=== PATIENT | female | born 1930 | race Caucasian/White ===

== ENCOUNTER 2016-07-22 10:33 | Inpatient (IN) | payer MEDICARE, BC ==
[2016-07-22 11:23] LABS: BASOPHILS % (AUTO) 1 % (0-3); EOSINOPHILS % (AUTO) 0 % (0-9); HEMATOCRIT 38 % (35-47); MEAN CORPUSCULAR HGB CONC 33.2 gm/dl (32.0-36.0); MEAN CORPUSCULAR VOLUME 82 fL (81-99); NEUTROPHILS % (AUTO) 96.1 % (37-80)
[2016-07-22 11:36] LABS: ALBUMIN 2.4 gm/dl (3.4-5.0); CALCIUM 8.5 mg/dl (8.5-10.1); POTASSIUM 4.5 mMol/L (3.5-5.1)
[2016-07-22] MEDS ORDERED: CEFTRIAXONE 1 GM (PREMIX) 1 GM/50 ML SOL IV ONE ×2 (11:47→11:51)
[2016-07-22] MEDS ORDERED: BACITRACIN 500 U/GM OIN TOP ONE (11:58)
[2016-07-22] MEDS ORDERED: SODIUM CHLORIDE 0.9% 1000 ML SOL IV SCH (12:00)
[2016-07-22] MEDS ORDERED: VANCOMYCIN HCL 500 MG PDS 1,000 MG in SODIUM CHLORIDE 0.9% 250 ML 250 ML IV SCH (13:30)
[2016-07-22] MEDS ORDERED: PIPERACILLIN/TAZOBACT 3.375 GM 3 GM in SODIUM CHLORIDE 0.9% 100 ML 100 ML IV SCH (13:30)
[2016-07-22] MEDS: ALBUTEROL/IPRATROPIUM 1 VIAL SOL INH SCH ×2 (14:30→19:40)
[2016-07-22] MEDS ORDERED: PHARMACOKINETICS 1 MISC PRN (14:43)
[2016-07-22] MEDS ORDERED: SODIUM CHLORIDE 0.9% 250 ML 250 ML IV ONE (14:52)
[2016-07-22] MEDS ORDERED: VANCOMYCIN HYDROCHLORIDE 500 MG PDS IV ONE (14:52)
[2016-07-22] MEDS: VANCOMYCIN HCL 500 MG PDS 1,000 MG in SODIUM CHLORIDE 0.9% 250 ML 250 ML IV SCH (15:00)
[2016-07-22] MEDS ORDERED: PIPERACILLIN/TAZOBACT 3.375 GM PDS IV ONE ×2 (16:06→22:43)
[2016-07-22] MEDS ORDERED: SODIUM CHLORIDE 0.9% 100 ML 100 ML IV ONE ×2 (16:06→22:43)
[2016-07-22] MEDS: PIPERACILLIN/TAZOBACT 3.375 GM 2.25 GM in SODIUM CHLORIDE 0.9% 100 ML 100 ML IV SCH ×2 (16:31→22:54)
[2016-07-22] MEDS ORDERED: WARFARIN SODIUM 3 MG TAB PO SCH (18:00)
[2016-07-22] MEDS: POTASSIUM CHLORIDE 10 MEQ TER PO SCH (21:29)
[2016-07-22] MEDS: SODIUM CHLORIDE 0.9% 1000ML 1,000 ML IV SCH (22:44)
[2016-07-23] MEDS: ALBUTEROL/IPRATROPIUM 1 VIAL SOL INH SCH ×4 (03:48→19:57)
[2016-07-23] MEDS ORDERED: PIPERACILLIN/TAZOBACT 3.375 GM PDS IV ONE ×4 (04:31→22:53)
[2016-07-23] MEDS ORDERED: SODIUM CHLORIDE 0.9% 100 ML 100 ML IV ONE ×4 (04:31→22:53)
[2016-07-23] MEDS: SODIUM CHLORIDE 0.9% 1000ML 1,000 ML IV SCH ×4 (04:43→20:46)
[2016-07-23] MEDS: PIPERACILLIN/TAZOBACT 3.375 GM 2.25 GM in SODIUM CHLORIDE 0.9% 100 ML 100 ML IV SCH ×4 (04:43→23:29)
[2016-07-23 07:25] LABS: BASOPHILS % (AUTO) 0 % (0-3); EOSINOPHILS % (AUTO) 0 % (0-9); HEMATOCRIT 38 % (35-47); MEAN CORPUSCULAR HGB CONC 31.5 gm/dl (32.0-36.0); MEAN CORPUSCULAR VOLUME 84 fL (81-99); MONOCYTES % (AUTO) 4.3 % (0-12); NEUTROPHILS % (AUTO) 94.1 % (37-80)
[2016-07-23 07:36] LABS: ALBUMIN 2.2 gm/dl (3.4-5.0); CALCIUM 8.2 mg/dl (8.5-10.1); POTASSIUM 4.2 mMol/L (3.5-5.1)
[2016-07-23] MEDS ORDERED: WARFARIN SODIUM 3 MG TAB PO SCH (09:00)
[2016-07-23] MEDS: POTASSIUM CHLORIDE 10 MEQ TER PO SCH ×2 (09:57→20:06)
[2016-07-23] MEDS: PREDNISONE 5 MG TAB PO SCH (09:58)
[2016-07-23] MEDS: ASCORBIC ACID/COPPER/VITAMIN SGL PO SCH (09:58)
[2016-07-23] MEDS: FUROSEMIDE 20 MG TAB PO SCH (09:58)
[2016-07-23] MEDS: PANTOPRAZOLE SODIUM 40 MG ECT PO SCH (09:59)
[2016-07-23] MEDS ORDERED: FUROSEMIDE 20mg SOL IV PRN (12:54)
[2016-07-23] MEDS: APAP/HYDROCODONE 325/5 TAB PO PRN ×2 (13:18→20:05)
[2016-07-23] MEDS: LATANOPROST 0.005% SOL EACHEYE SCH (13:26)
[2016-07-23 14:59] LABS: APPEARANCE,URINE Clear; BILIRUBIN,URINE NEGATIVE (NEGATIVE); COLOR,URINE Dark yellow; GLUCOSE, URINE (UA) NEGATIVE (NEGATIVE); KETONES,URINE NEGATIVE (NEGATIVE); LEUKOCYTE ESTERASE ,URINE NEGATIVE (NEGATIVE); NITRATE,URINE NEGATIVE (NEGATIVE); OCCULT BLOOD,URINE NEGATIVE (NEG-TRACE); PH,URINE 5.5; UROBILINOGEN,URINE 0.2 (0.2-1.0 EU)
[2016-07-23] MEDS ORDERED: VANCOMYCIN HYDROCHLORIDE 500 MG PDS IV ONE (15:04)
[2016-07-23] MEDS ORDERED: SODIUM CHLORIDE 0.9% 250 ML 250 ML IV ONE (15:04)
[2016-07-23 15:09] LABS: RBC,URINE 0-2 (0-3AV/HPF)
[2016-07-23] MEDS: VANCOMYCIN HCL 500 MG PDS 1,000 MG in SODIUM CHLORIDE 0.9% 250 ML 250 ML IV SCH (15:23)
[2016-07-23] MEDS: FLUCONAZOLE 100 MG TAB PO SCH (17:07)
[2016-07-23] MEDS: WARFARIN SODIUM 3 MG TAB PO SCH (17:12)
[2016-07-24] MEDS: SODIUM CHLORIDE 0.9% 1000ML 1,000 ML IV SCH ×5 (00:32→20:48)
[2016-07-24] MEDS: ALBUTEROL/IPRATROPIUM 1 VIAL SOL INH SCH ×4 (00:48→20:44)
[2016-07-24] MEDS ORDERED: SODIUM CHLORIDE 0.9% 100 ML 100 ML IV ONE (04:13)
[2016-07-24] MEDS ORDERED: PIPERACILLIN/TAZOBACT 3.375 GM PDS IV ONE ×2 (04:13→17:33)
[2016-07-24] MEDS: PIPERACILLIN/TAZOBACT 3.375 GM 2.25 GM in SODIUM CHLORIDE 0.9% 100 ML 100 ML IV SCH ×4 (04:20→22:32)
[2016-07-24] MEDS: ALBUTEROL NEB SOL 2.5MG/3ML 1 VIAL SOL NEB PRN (04:47)
[2016-07-24 07:16] LABS: BASOPHILS % (AUTO) 1 % (0-3); EOSINOPHILS % (AUTO) 0 % (0-9); HEMATOCRIT 38 % (35-47); MEAN CORPUSCULAR HGB CONC 31.8 gm/dl (32.0-36.0); MEAN CORPUSCULAR VOLUME 84 fL (81-99); MONOCYTES % (AUTO) 6.7 % (0-12); NEUTROPHILS % (AUTO) 90.6 % (37-80)
[2016-07-24 07:29] LABS: ALBUMIN 1.9 gm/dl (3.4-5.0); CALCIUM 7.8 mg/dl (8.5-10.1); POTASSIUM 4.3 mMol/L (3.5-5.1)
[2016-07-24] MEDS: APAP/HYDROCODONE 325/5 TAB PO PRN ×2 (09:58→19:52)
[2016-07-24] MEDS: ASCORBIC ACID/COPPER/VITAMIN SGL PO SCH (10:01)
[2016-07-24] MEDS: FLUCONAZOLE 100 MG TAB PO SCH (10:01)
[2016-07-24] MEDS: POTASSIUM CHLORIDE 10 MEQ TER PO SCH ×2 (10:02→20:48)
[2016-07-24] MEDS: FUROSEMIDE 20 MG TAB PO SCH (10:02)
[2016-07-24] MEDS: LATANOPROST 0.005% SOL EACHEYE SCH (10:03)
[2016-07-24] MEDS: PREDNISONE 5 MG TAB PO SCH (10:03)
[2016-07-24] MEDS: PANTOPRAZOLE SODIUM 40 MG ECT PO SCH (10:03)
[2016-07-24] MEDS ORDERED: FUROSEMIDE 40 MG SOL IV ONE (10:22)
[2016-07-24] MEDS ORDERED: VANCOMYCIN HYDROCHLORIDE 500 MG PDS IV ONE (15:36)
[2016-07-24] MEDS ORDERED: SODIUM CHLORIDE 0.9% 250 ML 250 ML IV ONE (15:38)
[2016-07-24] MEDS: VANCOMYCIN HCL 500 MG PDS 1,000 MG in SODIUM CHLORIDE 0.9% 250 ML 250 ML IV SCH (15:54)
[2016-07-24] MEDS: WARFARIN SODIUM 3 MG TAB PO SCH (17:50)
[2016-07-25] MEDS: ALBUTEROL/IPRATROPIUM 1 VIAL SOL INH SCH ×4 (01:11→18:25)
[2016-07-25] MEDS: APAP/HYDROCODONE 325/5 TAB PO PRN ×3 (01:25→16:00)
[2016-07-25] MEDS ORDERED: FUROSEMIDE 20mg SOL IV SCH (01:30)
[2016-07-25] MEDS: SODIUM CHLORIDE 0.9% 1000ML 1,000 ML IV SCH ×2 (01:42→08:31)
[2016-07-25] MEDS: PIPERACILLIN/TAZOBACT 3.375 GM 2.25 GM in SODIUM CHLORIDE 0.9% 100 ML 100 ML IV SCH ×4 (04:42→22:32)
[2016-07-25 07:52] LABS: HEMATOCRIT 38 % (35-47); MEAN CORPUSCULAR HGB CONC 31.2 gm/dl (32.0-36.0); MEAN CORPUSCULAR VOLUME 84 fL (81-99)
[2016-07-25] MEDS: PANTOPRAZOLE SODIUM 40 MG ECT PO SCH (08:26)
[2016-07-25] MEDS: FUROSEMIDE 20 MG TAB PO SCH (08:26)
[2016-07-25] MEDS: POTASSIUM CHLORIDE 10 MEQ TER PO SCH ×2 (08:26→20:35)
[2016-07-25] MEDS: PREDNISONE 5 MG TAB PO SCH (08:26)
[2016-07-25] MEDS: FLUCONAZOLE 100 MG TAB PO SCH (08:26)
[2016-07-25] MEDS: ASCORBIC ACID/COPPER/VITAMIN SGL PO SCH (08:27)
[2016-07-25] MEDS: LATANOPROST 0.005% SOL EACHEYE SCH (08:33)
[2016-07-25 08:36] LABS: CALCIUM 7.9 mg/dl (8.5-10.1); POTASSIUM 3.5 mMol/L (3.5-5.1)
[2016-07-25 08:37] LABS: BASOPHILS % (AUTO) 1 % (0-3); EOSINOPHILS % (AUTO) 0 % (0-9); MONOCYTES % (AUTO) 7.9 % (0-12); NEUTROPHILS % (AUTO) 88.7 % (37-80)
[2016-07-25] MEDS ORDERED: PIPERACILLIN/TAZOBACT 3.375 GM PDS IV ONE ×2 (12:39→21:57)
[2016-07-25] MEDS: CIPROFLOXACIN HCL 500 MG TAB PO SCH (13:23)
[2016-07-25] MEDS ORDERED: VANCOMYCIN HYDROCHLORIDE 500 MG PDS IV ONE (14:32)
[2016-07-25] MEDS ORDERED: SODIUM CHLORIDE 0.9% 250 ML 250 ML IV ONE (14:32)
[2016-07-25] MEDS: VANCOMYCIN HCL 500 MG PDS 1,000 MG in SODIUM CHLORIDE 0.9% 250 ML 250 ML IV SCH (15:19)
[2016-07-25] MEDS: SODIUM CHLORIDE 0.9% FLUSH 10 ML SOL IV SCH ×2 (15:19→22:32)
[2016-07-25] MEDS: WARFARIN SODIUM 3 MG TAB PO SCH (17:45)
[2016-07-25] MEDS ORDERED: FUROSEMIDE 40 MG SOL IV ONE (20:00)
[2016-07-25] MEDS: HYDROCORTISONE SODIUM SUCCIN 100 MG PDS IV SCH (20:34)
[2016-07-25] MEDS: ALBUTEROL NEB SOL 2.5MG/3ML 1 VIAL SOL NEB PRN (21:50)
[2016-07-25] MEDS ORDERED: SODIUM CHLORIDE 0.9% 100 ML 100 ML IV ONE (21:57)
[2016-07-26] MEDS: ALBUTEROL/IPRATROPIUM 1 VIAL SOL INH SCH ×4 (01:10→19:24)
[2016-07-26] MEDS: CIPROFLOXACIN HCL 500 MG TAB PO SCH ×2 (01:10→13:01)
[2016-07-26] MEDS: APAP/HYDROCODONE 325/5 TAB PO PRN ×2 (01:19→15:23)
[2016-07-26] MEDS: SODIUM CHLORIDE 0.9% FLUSH 10 ML SOL IV SCH ×3 (04:50→19:29)
[2016-07-26] MEDS: PIPERACILLIN/TAZOBACT 3.375 GM 2.25 GM in SODIUM CHLORIDE 0.9% 100 ML 100 ML IV SCH (04:51)
[2016-07-26 07:26] LABS: BASOPHILS % (AUTO) 1 % (0-3); EOSINOPHILS % (AUTO) 0 % (0-9); HEMATOCRIT 37 % (35-47); MEAN CORPUSCULAR HGB CONC 31.7 gm/dl (32.0-36.0); MEAN CORPUSCULAR VOLUME 83 fL (81-99); MONOCYTES % (AUTO) 4.2 % (0-12); NEUTROPHILS % (AUTO) 92.8 % (37-80)
[2016-07-26] MEDS: PANTOPRAZOLE SODIUM 40 MG ECT PO SCH (08:02)
[2016-07-26] MEDS: FUROSEMIDE 20 MG TAB PO SCH ×2 (08:02→20:14)
[2016-07-26] MEDS: POTASSIUM CHLORIDE 10 MEQ TER PO SCH ×2 (08:02→20:13)
[2016-07-26] MEDS: PREDNISONE 5 MG TAB PO SCH (08:02)
[2016-07-26] MEDS: LATANOPROST 0.005% SOL EACHEYE SCH (08:03)
[2016-07-26] MEDS: ASCORBIC ACID/COPPER/VITAMIN SGL PO SCH (08:04)
[2016-07-26] MEDS: HYDROCORTISONE SODIUM SUCCIN 100 MG PDS IV SCH (08:43)
[2016-07-26 08:59] LABS: CALCIUM 8.1 mg/dl (8.5-10.1); POTASSIUM 3.8 mMol/L (3.5-5.1)
[2016-07-27] MEDS: CIPROFLOXACIN HCL 500 MG TAB PO SCH ×2 (00:25→12:32)
[2016-07-27] MEDS: ALBUTEROL/IPRATROPIUM 1 VIAL SOL INH SCH ×4 (00:30→19:55)
[2016-07-27] MEDS: SODIUM CHLORIDE 0.9% FLUSH 10 ML SOL IV SCH ×3 (00:30→23:53)
[2016-07-27 07:20] LABS: BASOPHILS % (AUTO) 0 % (0-3); EOSINOPHILS % (AUTO) 0 % (0-9); HEMATOCRIT 38 % (35-47); MEAN CORPUSCULAR HGB CONC 33.1 gm/dl (32.0-36.0); MEAN CORPUSCULAR VOLUME 83 fL (81-99); MONOCYTES % (AUTO) 4.6 % (0-12); NEUTROPHILS % (AUTO) 93.1 % (37-80)
[2016-07-27 07:22] LABS: CALCIUM 8.4 mg/dl (8.5-10.1); POTASSIUM 4.4 mMol/L (3.5-5.1)
[2016-07-27 08:38] LABS: ALBUMIN 1.9 gm/dl (3.4-5.0); BILIRUBIN,DIRECT 0.8 mg/dl (0.0-0.2)
[2016-07-27] MEDS: PANTOPRAZOLE SODIUM 40 MG ECT PO SCH (08:38)
[2016-07-27] MEDS: LATANOPROST 0.005% SOL EACHEYE SCH (08:38)
[2016-07-27] MEDS: ASCORBIC ACID/COPPER/VITAMIN SGL PO SCH (08:38)
[2016-07-27] MEDS: APAP/HYDROCODONE 325/5 TAB PO PRN ×2 (08:38→21:57)
[2016-07-27] MEDS: FUROSEMIDE 20 MG TAB PO SCH ×2 (08:38→20:05)
[2016-07-27] MEDS: POTASSIUM CHLORIDE 10 MEQ TER PO SCH ×2 (08:39→20:05)
[2016-07-27] MEDS: PREDNISONE 5 MG TAB PO SCH (08:39)
[2016-07-27] MEDS ORDERED: PHYTONADIONE 5 MG PO SCH (08:45)
[2016-07-27] MEDS: HYDROCORTISONE SODIUM SUCCIN 100 MG PDS IV SCH (08:59)
[2016-07-27] MEDS: POLYETHYLENE GLYCOL 17 GM/1 TBS PDS PO SCH (08:59)
[2016-07-27] MEDS: METOLAZONE 2.5 MG TAB PO SCH (11:41)
[2016-07-28] MEDS: CIPROFLOXACIN HCL 500 MG TAB PO SCH ×3 (00:17→23:12)
[2016-07-28] MEDS: ALBUTEROL/IPRATROPIUM 1 VIAL SOL INH SCH ×4 (02:20→20:16)
[2016-07-28] MEDS: APAP/HYDROCODONE 325/5 TAB PO PRN ×3 (06:33→20:20)
[2016-07-28] MEDS: METOLAZONE 2.5 MG TAB PO SCH (06:34)
[2016-07-28 07:27] LABS: CALCIUM 8.3 mg/dl (8.5-10.1); POTASSIUM 3.8 mMol/L (3.5-5.1)
[2016-07-28] MEDS: POTASSIUM CHLORIDE 10 MEQ TER PO SCH ×2 (08:21→20:20)
[2016-07-28] MEDS: SODIUM CHLORIDE 0.9% FLUSH 10 ML SOL IV SCH (08:23)
[2016-07-28] MEDS: FUROSEMIDE 20 MG TAB PO SCH (08:24)
[2016-07-28] MEDS: POLYETHYLENE GLYCOL 17 GM/1 TBS PDS PO SCH (08:24)
[2016-07-28] MEDS: ASCORBIC ACID/COPPER/VITAMIN SGL PO SCH (08:50)
[2016-07-28] MEDS: PANTOPRAZOLE SODIUM 40 MG ECT PO SCH (08:50)
[2016-07-28] MEDS: LATANOPROST 0.005% SOL EACHEYE SCH (08:51)
[2016-07-28] MEDS: FUROSEMIDE 40 MG TAB PO SCH ×2 (09:31→13:02)
[2016-07-28] MEDS: PREDNISONE 20 MG TAB PO SCH (09:31)
[2016-07-28] MEDS: HYDROCORTISONE SODIUM SUCCIN 100 MG PDS IV SCH (15:42)
[2016-07-28] MEDS ORDERED: LORAZEPAM 0.5 MG TAB PO PRN (17:41)
[2016-07-28] MEDS ORDERED: WARFARIN SODIUM 1 MG TAB PO SCH (18:00)
[2016-07-28] MEDS ORDERED: SERTRALINE HYDROCHLORIDE 50 MG TAB PO SCH (21:00)
[2016-07-29] MEDS: ALBUTEROL/IPRATROPIUM 1 VIAL SOL INH SCH ×2 (01:52→07:48)
[2016-07-29] MEDS: APAP/HYDROCODONE 325/5 TAB PO PRN (05:12)
[2016-07-29 07:22] LABS: ALBUMIN 1.8 gm/dl (3.4-5.0); POTASSIUM 3.2 mMol/L (3.5-5.1)
[2016-07-29 07:48] VITALS: BP 124/82; PULSE 80; RESP 20; TEMP 97.2
[2016-07-29 07:56] VITALS: O2SAT 99
[2016-07-29] MEDS: POLYETHYLENE GLYCOL 17 GM/1 TBS PDS PO SCH (08:41)
[2016-07-29] MEDS: PREDNISONE 20 MG TAB PO SCH (08:41)
[2016-07-29] MEDS: FUROSEMIDE 40 MG TAB PO SCH (08:41)
[2016-07-29] MEDS: POTASSIUM CHLORIDE 10 MEQ TER PO SCH (08:41)
[2016-07-29] MEDS: PANTOPRAZOLE SODIUM 40 MG ECT PO SCH (08:42)
[2016-07-29] MEDS: LATANOPROST 0.005% SOL EACHEYE SCH (08:42)
[2016-07-29] MEDS: ASCORBIC ACID/COPPER/VITAMIN SGL PO SCH (08:42)
== END 2016-07-29 09:40 | disposition swing bed (61) | DRG 573 ==
LOC: ED 10:33 → UNDOADMIN 12:35 → ACUTE CARE 12:35
PROVIDERS: ADMIT Emergency Medicine; ATTEND Emergency Medicine
PROC: 2W1MX6Z Compression of Left Lower Extremity using Pressure Dressing (ICD-10-PCS; 2016-07-23)
PROC: 2W1LX6Z Compression of Right Lower Extremity using Pressure Dressing (ICD-10-PCS; 2016-07-23)
PROC: 2W1SX6Z Compression of Right Foot using Pressure Dressing (ICD-10-PCS; 2016-07-23)
PROC: 2W25X4Z Dressing of Back using Bandage (ICD-10-PCS; 2016-07-23)
PROC: 0T9B70Z Drainage of Bladder with Drainage Device, Via Natural or Artificial Opening (ICD-10-PCS; 2016-07-23)
PROC: 0HB6XZZ Excision of Back Skin, External Approach (ICD-10-PCS; 2016-07-27)
PROC: 0HRLXK3 Replacement of Left Lower Leg Skin with Nonautologous Tissue Substitute, Full Thickness, External Approach (ICD-10-PCS; principal; 2016-07-28)
PROC: 0HBLXZZ Excision of Left Lower Leg Skin, External Approach (ICD-10-PCS; 2016-07-28)
PROC: 2W1MX6Z Compression of Left Lower Extremity using Pressure Dressing (ICD-10-PCS; 2016-07-28)
PROC: 2W1LX6Z Compression of Right Lower Extremity using Pressure Dressing (ICD-10-PCS; 2016-07-28)
PROC: 2W25X4Z Dressing of Back using Bandage (ICD-10-PCS; 2016-07-28)
DX: L02.416 Cutaneous abscess of left lower limb (principal); E87.1 Hypo-osmolality and hyponatremia; I50.9 Heart failure, unspecified; L03.116 Cellulitis of left lower limb; L03.115 Cellulitis of right lower limb; R94.4 Abnormal results of kidney function studies; L89.103 Pressure ulcer of unspecified part of back, stage 3; Z79.01 Long term (current) use of anticoagulants; Z95.0 Presence of cardiac pacemaker; W19.XXXA Unspecified fall, initial encounter; L89.152 Pressure ulcer of sacral region, stage 2; L02.415 Cutaneous abscess of right lower limb; M62.82 Rhabdomyolysis; L97.412 Non-pressure chronic ulcer of right heel and midfoot with fat layer exposed; L97.822 Non-pressure chronic ulcer of other part of left lower leg with fat layer exposed; L97.821 Non-pressure chronic ulcer of other part of left lower leg limited to breakdown of skin; L97.811 Non-pressure chronic ulcer of other part of right lower leg limited to breakdown of skin; R60.0 Localized edema; W18.30XA Fall on same level, unspecified, initial encounter; Z72.0 Tobacco use; J44.9 Chronic obstructive pulmonary disease, unspecified; R74.0 Nonspecific elevation of levels of transaminase and lactic acid dehydrogenase [LDH]; R33.9 Retention of urine, unspecified; F41.9 Anxiety disorder, unspecified; B96.89 Other specified bacterial agents as the cause of diseases classified elsewhere
CPT/HCPCS: 15271; 29580; 36415; 51798; 70450; 80048; 80053; 80076; 81001; 82550; 83880; 84484; 85025; 85610; 87040; 87070; 87077; 87186; 93005; 94150; 94640; 94760; 96365; 99070; 99221; 99231; 99284; 99291; J0696; J1720; J1940; J2543; J3370; J7603; J7620; A4450; A6232; A6402; A6446; Q4137

== ENCOUNTER 2016-07-29 09:45 | Inpatient (IN) | payer MEDICARE, BC ==
[2016-07-29] MEDS ORDERED: APAP/HYDROCODONE 325/5 TAB PO PRN (12:45)
[2016-07-29] MEDS ORDERED: BISACODYL 10 MG SUP PR PRN (12:45)
[2016-07-29] MEDS ORDERED: POTASSIUM CHLORIDE 10 MEQ TER PO ONE (13:00)
[2016-07-29] MEDS: CIPROFLOXACIN HCL 500 MG TAB PO SCH (14:28)
[2016-07-29] MEDS: ALBUTEROL/IPRATROPIUM 1 VIAL SOL INH SCH ×3 (14:28→20:39)
[2016-07-29] MEDS ORDERED: WARFARIN SODIUM 3 MG TAB PO SCH (18:00)
[2016-07-29] MEDS: SERTRALINE HYDROCHLORIDE 50 MG TAB PO SCH (20:43)
[2016-07-29] MEDS: BUDESONIDE 0.25 MG/2 ML SUS INH SCH (21:28)
[2016-07-29] MEDS: LORAZEPAM 0.5 MG TAB PO PRN (21:52)
[2016-07-30] MEDS: CIPROFLOXACIN HCL 500 MG TAB PO SCH ×2 (01:31→12:17)
[2016-07-30 07:10] LABS: POTASSIUM 3.4 mMol/L (3.5-5.1)
[2016-07-30] MEDS ORDERED: PREDNISONE 20 MG TAB PO SCH (09:00)
[2016-07-30] MEDS: ALBUTEROL/IPRATROPIUM 1 VIAL SOL INH SCH ×4 (09:51→21:11)
[2016-07-30] MEDS: POLYETHYLENE GLYCOL 17 GM/1 TBS PDS PO SCH (09:55)
[2016-07-30] MEDS: POTASSIUM CHLORIDE 10 MEQ TER PO SCH (09:55)
[2016-07-30] MEDS: FUROSEMIDE 40 MG TAB PO SCH (09:56)
[2016-07-30] MEDS: PREDNISONE 20 MG TAB PO SCH (09:56)
[2016-07-30] MEDS: PANTOPRAZOLE SODIUM 40 MG ECT PO SCH (09:57)
[2016-07-30] MEDS: LATANOPROST 0.005% SOL EACHEYE SCH (09:58)
[2016-07-30] MEDS: ASCORBIC ACID/COPPER/VITAMIN SGL PO SCH (09:59)
[2016-07-30] MEDS: BUDESONIDE 0.25 MG/2 ML SUS INH SCH ×2 (09:59→21:30)
[2016-07-30] MEDS: WARFARIN SODIUM 3 MG TAB PO SCH (18:05)
[2016-07-30] MEDS: SERTRALINE HYDROCHLORIDE 50 MG TAB PO SCH (21:15)
[2016-07-31] MEDS: CIPROFLOXACIN HCL 500 MG TAB PO SCH ×2 (00:05→13:17)
[2016-07-31] MEDS: POLYETHYLENE GLYCOL 17 GM/1 TBS PDS PO SCH (07:59)
[2016-07-31] MEDS: FUROSEMIDE 40 MG TAB PO SCH (07:59)
[2016-07-31] MEDS: PREDNISONE 20 MG TAB PO SCH (07:59)
[2016-07-31] MEDS: POTASSIUM CHLORIDE 10 MEQ TER PO SCH (07:59)
[2016-07-31] MEDS: PANTOPRAZOLE SODIUM 40 MG ECT PO SCH (07:59)
[2016-07-31] MEDS: ASCORBIC ACID/COPPER/VITAMIN SGL PO SCH (08:00)
[2016-07-31] MEDS: ALBUTEROL/IPRATROPIUM 1 VIAL SOL INH SCH ×4 (08:00→21:51)
[2016-07-31] MEDS: LATANOPROST 0.005% SOL EACHEYE SCH (08:00)
[2016-07-31] MEDS: BUDESONIDE 0.25 MG/2 ML SUS INH SCH ×2 (08:01→22:00)
[2016-07-31] MEDS: WARFARIN SODIUM 3 MG TAB PO SCH (17:55)
[2016-07-31] MEDS: SERTRALINE HYDROCHLORIDE 50 MG TAB PO SCH (21:52)
[2016-08-01] MEDS: CIPROFLOXACIN HCL 500 MG TAB PO SCH ×2 (01:05→14:36)
[2016-08-01] MEDS: ALBUTEROL/IPRATROPIUM 1 VIAL SOL INH SCH ×4 (08:57→20:31)
[2016-08-01] MEDS: BUDESONIDE 0.25 MG/2 ML SUS INH SCH ×2 (09:01→20:34)
[2016-08-01] MEDS: POTASSIUM CHLORIDE 10 MEQ TER PO SCH (09:02)
[2016-08-01] MEDS: PANTOPRAZOLE SODIUM 40 MG ECT PO SCH (09:02)
[2016-08-01] MEDS: PREDNISONE 20 MG TAB PO SCH (09:02)
[2016-08-01] MEDS: POLYETHYLENE GLYCOL 17 GM/1 TBS PDS PO SCH (09:03)
[2016-08-01] MEDS: FUROSEMIDE 40 MG TAB PO SCH (09:03)
[2016-08-01] MEDS: LATANOPROST 0.005% SOL EACHEYE SCH (09:06)
[2016-08-01] MEDS: ASCORBIC ACID/COPPER/VITAMIN SGL PO SCH (09:06)
[2016-08-01] MEDS: WARFARIN SODIUM 3 MG TAB PO SCH (18:59)
[2016-08-01] MEDS: SERTRALINE HYDROCHLORIDE 50 MG TAB PO SCH (20:31)
[2016-08-02] MEDS: CIPROFLOXACIN HCL 500 MG TAB PO SCH ×2 (01:19→11:45)
[2016-08-02] MEDS: ALBUTEROL/IPRATROPIUM 1 VIAL SOL INH SCH ×4 (08:05→22:01)
[2016-08-02] MEDS: BUDESONIDE 0.25 MG/2 ML SUS INH SCH ×2 (08:15→22:11)
[2016-08-02] MEDS: POTASSIUM CHLORIDE 10 MEQ TER PO SCH (08:28)
[2016-08-02] MEDS: PANTOPRAZOLE SODIUM 40 MG ECT PO SCH (08:29)
[2016-08-02] MEDS: LATANOPROST 0.005% SOL EACHEYE SCH (08:29)
[2016-08-02] MEDS: POLYETHYLENE GLYCOL 17 GM/1 TBS PDS PO SCH (08:29)
[2016-08-02] MEDS: FUROSEMIDE 40 MG TAB PO SCH (08:29)
[2016-08-02] MEDS: PREDNISONE 20 MG TAB PO SCH (08:30)
[2016-08-02] MEDS: ASCORBIC ACID/COPPER/VITAMIN SGL PO SCH (08:31)
[2016-08-02] MEDS: SERTRALINE HYDROCHLORIDE 50 MG TAB PO SCH (22:12)
[2016-08-03] MEDS: CIPROFLOXACIN HCL 500 MG TAB PO SCH ×2 (00:07→12:32)
[2016-08-03] MEDS: POTASSIUM CHLORIDE 10 MEQ TER PO SCH (09:38)
[2016-08-03] MEDS: ALBUTEROL/IPRATROPIUM 1 VIAL SOL INH SCH ×4 (09:38→21:56)
[2016-08-03] MEDS: PREDNISONE 20 MG TAB PO SCH (09:39)
[2016-08-03] MEDS: FUROSEMIDE 40 MG TAB PO SCH (09:39)
[2016-08-03] MEDS: POLYETHYLENE GLYCOL 17 GM/1 TBS PDS PO SCH (09:39)
[2016-08-03] MEDS: BUDESONIDE 0.25 MG/2 ML SUS INH SCH ×2 (09:40→22:17)
[2016-08-03] MEDS: ASCORBIC ACID/COPPER/VITAMIN SGL PO SCH (09:40)
[2016-08-03] MEDS: LATANOPROST 0.005% SOL EACHEYE SCH (09:41)
[2016-08-03] MEDS: PANTOPRAZOLE SODIUM 40 MG ECT PO SCH (09:58)
[2016-08-03] MEDS: SERTRALINE HYDROCHLORIDE 50 MG TAB PO SCH (21:58)
[2016-08-04] MEDS ORDERED: FLUCONAZOLE 100 MG TAB PO SCH (09:00)
[2016-08-04] MEDS: ALBUTEROL/IPRATROPIUM 1 VIAL SOL INH SCH ×4 (09:34→20:51)
[2016-08-04] MEDS: POTASSIUM CHLORIDE 10 MEQ TER PO SCH (09:34)
[2016-08-04] MEDS: FUROSEMIDE 40 MG TAB PO SCH (09:35)
[2016-08-04] MEDS: POLYETHYLENE GLYCOL 17 GM/1 TBS PDS PO SCH (09:35)
[2016-08-04] MEDS: ASCORBIC ACID/COPPER/VITAMIN SGL PO SCH (09:35)
[2016-08-04] MEDS: PREDNISONE 20 MG TAB PO SCH (09:35)
[2016-08-04] MEDS: PANTOPRAZOLE SODIUM 40 MG ECT PO SCH (09:36)
[2016-08-04] MEDS: BUDESONIDE 0.25 MG/2 ML SUS INH SCH ×2 (09:36→20:57)
[2016-08-04] MEDS: LATANOPROST 0.005% SOL EACHEYE SCH (09:36)
[2016-08-04] MEDS: ALBUTEROL NEB SOL 2.5MG/3ML 1 VIAL SOL NEB PRN ×2 (11:39→13:35)
[2016-08-04] MEDS ORDERED: FUROSEMIDE 40 MG TAB PO SCH (12:00)
[2016-08-04] MEDS: LORAZEPAM 0.5 MG TAB PO PRN (12:35)
[2016-08-04] MEDS ORDERED: ALBUTEROL NEB SOL 2.5MG/3ML 1 VIAL SOL NEB ONE (13:38)
[2016-08-04 13:49] LABS: ABG PH 7.4 (7.35-7.45)
[2016-08-04] MEDS ORDERED: PHYTONADIONE 10 MG/ML SOL IM ONE (14:00)
[2016-08-04] MEDS: SERTRALINE HYDROCHLORIDE 50 MG TAB PO SCH (20:50)
[2016-08-05] MEDS: ALBUTEROL NEB SOL 2.5MG/3ML 1 VIAL SOL NEB PRN (04:34)
[2016-08-05 07:24] LABS: ALBUMIN 2.1 gm/dl (3.4-5.0); CALCIUM 8.4 mg/dl (8.5-10.1); POTASSIUM 3.9 mMol/L (3.5-5.1)
[2016-08-05] MEDS ORDERED: MORPHINE SULFATE 10 MG/5 ML SOL PO PRN (09:15)
[2016-08-05] MEDS: AUGMENTIN(FRIDGE) 400 MG/5 ML PO SCH ×2 (09:27→20:42)
[2016-08-05] MEDS: POTASSIUM CHLORIDE 10 MEQ TER PO SCH (09:27)
[2016-08-05] MEDS: FUROSEMIDE 40 MG TAB PO SCH (09:28)
[2016-08-05] MEDS: POLYETHYLENE GLYCOL 17 GM/1 TBS PDS PO SCH (09:28)
[2016-08-05] MEDS: ASCORBIC ACID/COPPER/VITAMIN SGL PO SCH (09:29)
[2016-08-05] MEDS: LATANOPROST 0.005% SOL EACHEYE SCH (09:29)
[2016-08-05] MEDS: PANTOPRAZOLE SODIUM 40 MG ECT PO SCH (09:29)
[2016-08-05] MEDS: PREDNISONE 20 MG TAB PO SCH ×2 (09:29→10:51)
[2016-08-05] MEDS: ALBUTEROL/IPRATROPIUM 1 VIAL SOL INH SCH ×4 (10:21→20:42)
[2016-08-05] MEDS: BUDESONIDE 0.25 MG/2 ML SUS INH SCH ×2 (10:31→20:43)
[2016-08-06 07:17] VITALS: BP 101/66; TEMP 98.6
[2016-08-06] MEDS: AUGMENTIN(FRIDGE) 400 MG/5 ML PO SCH (09:15)
[2016-08-06] MEDS: PREDNISONE 20 MG TAB PO SCH (09:16)
[2016-08-06] MEDS: POLYETHYLENE GLYCOL 17 GM/1 TBS PDS PO SCH (09:16)
[2016-08-06] MEDS: LATANOPROST 0.005% SOL EACHEYE SCH (09:16)
[2016-08-06] MEDS: FUROSEMIDE 40 MG TAB PO SCH (09:17)
[2016-08-06] MEDS: POTASSIUM CHLORIDE 10 MEQ TER PO SCH (09:17)
[2016-08-06] MEDS: ALBUTEROL/IPRATROPIUM 1 VIAL SOL INH SCH (09:25)
[2016-08-06 09:27] VITALS: RESP 24
[2016-08-06 09:54] VITALS: PULSE 80; O2SAT 100
[2016-08-06] MEDS: BUDESONIDE 0.25 MG/2 ML SUS INH SCH (10:06)
[2016-08-07] MEDS ORDERED: PREDNISONE 10 MG TAB PO SCH (09:00)
[2016-08-10] MEDS ORDERED: PREDNISONE 5 MG TAB PO SCH (09:00)
== END 2016-08-06 10:20 | DRG 190 ==
LOC: ACUTE CARE 09:45
PROVIDERS: ADMIT Emergency Medicine; ATTEND Emergency Medicine
DX: J44.0 Chronic obstructive pulmonary disease with (acute) lower respiratory infection (principal); J18.9 Pneumonia, unspecified organism; L89.152 Pressure ulcer of sacral region, stage 2; L89.103 Pressure ulcer of unspecified part of back, stage 3; B37.0 Candidal stomatitis; L97.412 Non-pressure chronic ulcer of right heel and midfoot with fat layer exposed; L97.822 Non-pressure chronic ulcer of other part of left lower leg with fat layer exposed; L98.421 Non-pressure chronic ulcer of back limited to breakdown of skin; R33.9 Retention of urine, unspecified; F41.9 Anxiety disorder, unspecified; R53.1 Weakness; E87.6 Hypokalemia; R60.0 Localized edema
CPT/HCPCS: 36415; 36600; 51798; 71020; 80048; 80053; 82803; 85610; 93306; 94640; J3430; J7603; J7620; A6232; A6402